=== PATIENT | male | born 1985 ===

== ENCOUNTER 2016-05-11 14:14 | Inpatient (IN) | payer OTHER ==
[2016-05-11 15:01] VITALS: BP 119/66; PULSE 87; TEMP 98.9; BMI 35.6
--- NOTE | 2016-05-11 15:59 | HP ---
CIWA Score - CIWA Score Nausea/Vomitin Muscle Tremors: 2 Anxiety: 3 Agitation: 2 Paroxysmal Sweats: 3 Orientation: 4Disoriented Place/Person Tacttile Disturbances: 0-None Auditory Disturbances: 0-None Visual Disturbances: 0-None Headache: 2-Mild CIWA-Ar Total Score: 21 Admission ROS BHS - HPI Chief Complaint: "I am here to save my life." Allergies/Adverse Reactions: Allergies Allergy/AdvReac Type Severity Reaction Status Date / Time No Known Allergies Allergy Verified 05/11/16 15:05 History of Present Illness: Pt. is 30 YO Transgender (Male to Female) here to detox from Alcohol. This is her first detox admission at [facility]. She has had Detox admissions at both [facility] and [facility] in the past. Exam Limitations: No Limitations - Ebola screening Have you traveled outside of the country in the last 21 days: No Have you had contact with anyone from an Ebola affected area: No Have you been sick,other than usual withdrawal symptoms: No Do you have a fever: No - Review of Systems Constitutional: Chills, Fever, Malaise EENT: reports: No Symptoms Reported Respiratory: reports: No Symptoms reported Cardiac: reports: Palpitations GI: reports: Constipated : reports: No Symptoms Reported Musculoskeletal: reports: No Symptoms Reported Integumentary: reports: No Symptoms Reported Neuro: reports: Tremors Endocrine: reports: No Symptoms Reported Hematology: reports: No Symptoms Reported Psychiatric: reports: Judgement Intact, Mood/Affect Appropiate, Anxious, Depressed, Disorientated (To Location.) Other Systems: Reviewed and Negative Patient History - Patient Medical History Hx Anemia: No Hx Asthma: No Hx Chronic Obstructive Pulmonary Disease (COPD): No Hx Cancer: No Hx Cardiac Disorders: No Hx Congestive Heart Failure: No Hx Hypertension: No Hx Hypercholesterolemia: No Hx Pacemaker: No HX Cerebrovascular Accident: No Hx Seizures: No Hx Dementia: No Hx Diabetes: No Hx Gastrointestinal Disorders: No Hx Liver Disease: No Hx Genitourinary Disorders: No Hx Sexually Transmitted Disorders: No (GONORRHEA (2008), Treated.) Hx Renal Disease (ESRD): No Hx Thyroid Disease: No Hx Human Immunodeficiency Virus (HIV): No (Last Tested: 01/2015: NEGATIVE.) Hx Hepatitis C: No (Last Tested: 2015: NEGATIVE.) Hx Depression: Yes (No Treatment in past.) Hx Suicide Attempt: No (PATIENT DENIES CURRENT SI / HI.) Hx Bipolar Disorder: No Hx Schizophrenia: No Other Medical History: Transgender: Male to Female (2013), Meds. only, NO surgical Intervention - Patient Surgical History Past Surgical History: No Hx Neurologic Surgery: No Hx Cataract Extraction: No Hx Cardiac Surgery: No Hx Lung Surgery: No Hx Breast Surgery: No Hx Breast Biopsy: No Hx Abdominal Surgery: No Hx Appendectomy: No Hx Cholecystectomy: No Hx Genitourinary Surgery: No Hx Section: No Hx Orthopedic Surgery: No Hx Hysterectomy: No Anesthesia Reaction: No - PPD History Previous Implant?: Yes Documented Results: Negative w/o proof Implanted On Prior [facility] Admission?: No PPD to be Administered?: Yes - Reproductive History Patient is a Female of Child Bearing Age (11 -55 yrs old): Yes (Pt. is Transgender (Male to Female).) - Smoking Cessation Smoking history: Never smoked Have you smoked in the past 12 months: No Cigars Per Day: 0 Hx Chewing Tobacco Use: No Initiated information on smoking cessation: No - Substance & Tx. History Hx Alcohol Use: Yes Hx Substance Use: Yes Substance Use Type: Alcohol Hx Substance Use Treatment: Yes (Previous Detox admissions in past (not at [facility]) .) - Substances Abused Alcohol Route: Oral Frequency: Daily Amount used: 5 CAN OF FOURLOKO Age of first use: 27 Date of Last Use: 05/11/16 Family Disease History - Family Disease History Family Disease History: Other: Grandparent (Alcohol.) Admission Physical Exam S - Vital Signs Vital Signs: Vital Signs - 24 hr 05/11/16 14:59 Temperature 98.9 F Pulse Rate 87 Respiratory 20 Rate Blood Pressure 119/66 - Physical General Appearance: Yes: Nourished, Appropriately Dressed, Mild Distress, Tremorous, Anxious HEENTM: Yes: Hearing grossly Normal, Normocephalic, Normal Voice, RENEA, Pharynx Normal Respiratory: Yes: Chest Non-Tender, Lungs Clear, No Respiratory Distress Neck: Yes: No masses,lesions,Nodules, Supple, Trachea in good position Breast: Yes: Breast Exam Deferred Cardiology: Yes: Regular Rhythm, Regular Rate, S1, S2 Abdominal: Yes: Normal Bowel Sounds, Non Tender, Soft, Protuberent Genitourinary: Yes: Within Normal Limits Back: Yes: Normal Inspection Musculoskeletal: Yes: full range of Motion, Gait Steady Extremities: Yes: Normal Inspection, Normal Range of Motion, Non-Tender, Tremors Neurological: Yes: Alert, Normal Mood/Affect, Normal Response, Disoriented (To Place.) Integumentary: Yes: Normal Color, Dry, Warm Lymphatic: Yes: Within Normal Limits - Diagnostic (1) Alcohol dependence with uncomplicated withdrawal Current Visit: Yes Status: Acute (2) [id number] transgender person Current Visit: Yes Status: Chronic Cleared for Admission [facility] - Detox or Rehab [facility] Level of Care: Medically Managed (Pt. 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 Pt. reports that she is okay to complete full course of Detox and that she will then go to receive medications prior to possible start of Rehab.) Detox Regimen/Protocol: Valium [facility] Breath Alcohol Content Breath Alcohol Content: 0 Urine Drug Screen - Results Drug Screen Negative: No Urine Drug Screen Results: BZO-Benzodiazepines
[2016-05-11] MEDS ORDERED: MAGNESIUM CITRATE 300 ML BOTTLE PO PRN (16:32)
[2016-05-11] MEDS ORDERED: MAGNESIUM HYDROX 2400MG/30ML ORAL SUSPENSION 30 ML CUP PO PRN (16:32)
[2016-05-11] MEDS ORDERED: guaiFENesin/D-METHORPHAN HB 10 ML UNIT-DOSE CUPS PO PRN (16:32)
[2016-05-11] MEDS ORDERED: MAG HYDROX/AL HYDROX/SIMETH 30 ML UNIT-DOSE CUP PO PRN (16:32)
[2016-05-11] MEDS ORDERED: diazePAM 5 MG TABLET PO PRN (16:32)
[2016-05-11] MEDS ORDERED: diphenhydrAMINE HCL 50 MG CAPSULE PO PRN (16:32)
[2016-05-11] MEDS ORDERED: IBUPROFEN 400 MG TABLET (FP) PO PRN (16:32)
[2016-05-11] MEDS ORDERED: hydrOXYzine PAMOATE 50 MG CAPSULE (FP) PO PRN (16:32)
[2016-05-11] MEDS ORDERED: diazePAM 5 MG TABLET PO ONE (16:32)
[2016-05-11] MEDS ORDERED: ACETAMINOPHEN 325 MG TABLET (FP) PO PRN (16:32)
[2016-05-11] MEDS ORDERED: P-EPHED 60MG/TRIPROLIDI 2.5MG TABLET PO PRN (16:32)
[2016-05-11] MEDS ORDERED: LOPERAMIDE HCL 2 MG CAPSULE PO PRN (16:32)
[2016-05-11] MEDS ORDERED: MENTHOL/PHENOL 1 EACH UD MM PRN (16:32)
--- NOTE | 2016-05-11 18:59 | PN ---
S Progress Note Note: PATIENT DID NOT WANT TO COMPLETE TREATMENT,SIGNED RELEASE AMA,DID NOT WANT TO WAIT
--- NOTE | 2016-05-11 19:03 | DS ---
[facility] Detox Discharge Summary Admission Date: 05/11/16 Discharge Date: 05/11/16 - History Present History: Alcohol Dependence Additional Comments: PATIENT DID NOT WANT TO COMPLETE TREATMENT,SIGNED RELEASE AMA,DID NOT WANT TO WAIT Pertinent Past History: TRANSGENDER - Physical Exam Results Vital Signs: Vital Signs Temperature 98.9 F 05/11/16 14:59 Pulse Rate 87 05/11/16 14:59 Respiratory Rate 20 05/11/16 14:59 Blood Pressure 119/66 05/11/16 14:59 O2 Sat by Pulse Oximetry (%) Pertinent Admission Physical Exam Findings: WITHDRAWAL SYMPTOM - Medication Discharge Medications: Ambulatory Orders Cyanocobalamin (Vitamin B-12) [B-12] 1,000 mcg PO WEEKLY 05/11/16 Estradiol 2 mg PO DAILY 05/11/16 Spironolactone 100 mg PO DAILY 05/11/16 - AMA Did Patient Leave Against Medical Advice: Yes
[2016-05-11] MEDS ORDERED: diazePAM 5 MG TABLET PO SCH (22:00)
[2016-05-11] MEDS ORDERED: THIAMINE HCL 100 MG TABLET (FP) PO SCH (22:00)
[2016-05-12] MEDS ORDERED: PRENATAL VITAMINS W/ FOLIC ACID TABLET (FP) PO SCH (10:00)
[2016-05-12] MEDS ORDERED: SPIRONOLACTONE 25 MG TABLET (FP) PO SCH (10:00)
[2016-05-12] MEDS ORDERED: PATIENT'S OWN MEDICATION (NON-FORMULARY) (Spironolactone [Spironolactone] 100 MG) PO SCH (10:00)
[2016-05-13] MEDS ORDERED: diazePAM 5 MG TABLET PO SCH (10:00)
--- NOTE | 2016-05-13 14:01 | EKG ---
Test Reason : Blood Pressure : / mmHG Vent. Rate : 079 BPM Atrial Rate : 079 BPM P-R Int : 142 ms QRS Dur : 094 ms QT Int : 402 ms P-R-T Axes : 066 072 054 degrees QTc Int : 460 ms NORMAL SINUS RHYTHM NORMAL ECG NO PREVIOUS ECGS AVAILABLE Confirmed by SANGEETA JI MD ([id number]) on 05/13/2016 2:00:46 PM Referred By: Confirmed By:SANGEETA JI MD
[2016-05-15] MEDS ORDERED: diazePAM 5 MG TABLET PO SCH (10:00)
== END 2016-05-11 18:23 | disposition left against medical advice (07) | DRG 770 ==
LOC: YASAS 14:14 → Y6N 15:54
PROVIDERS: ADMIT Internal Medicine Addiction Medicine; ATTEND Internal Medicine Addiction Medicine
PROC: HZ2ZZZZ Detoxification Services for Substance Abuse Treatment (ICD-10-PCS; principal; 2016-05-11)
DX: F10.230 Alcohol dependence with withdrawal, uncomplicated (principal); F64.8 Other gender identity disorders
CPT/HCPCS: 93005; 93010